=== PATIENT | female | born 1960 | race Caucasian/White ===

== ENCOUNTER 2019-08-13 17:59 | Emergency (ER) | payer MEDICARE ==
[2019-08-13 18:51] VITALS: BP 157/90
[2019-08-13] MEDS ORDERED: Albuterol 2.5 MG/3 ML NEB.SOL* (0.083%) INH ONE (19:01)
[2019-08-13] MEDS ORDERED: predniSONE TAB* 20 MG PO ONE (19:27)
[2019-08-13] MEDS ORDERED: Azithromycin TAB* 250 MG PO ONE (19:28)
--- NOTE | 2019-08-13 19:31 | UC ---
Respiratory Complaint HPI - HPI Summary HPI Summary: 58-year-old woman comes in with a chief complaint of shortness of breath chest congestion. Patient has history of COPD and she has chronic shortness of breath. In the last week or more she's developed green sputum and shortness of breath is worse. When he starts coughing she gets chest pain. To the center of her chest and it occurs with the coughing. After she was worried about heart attack and she said she was not. She feels the pain is associated with the chest congestion infection. Activity makes his shortness breath worse. No new edema. - History of Current Complaint Chief Complaint: UCRespiratory Stated Complaint: CHEST CONGESTION Time Seen by Provider: 08/13/19 18:38 Pain Intensity: 8 - Allergies/Home Medications Allergies/Adverse Reactions: Allergies Allergy/AdvReac Type Severity Reaction Status Date / Time albuterol [From ProAir HFA] Allergy GI Upset Verified 08/13/19 18:34 bupropion [From Wellbutrin] Allergy Vomiting Verified 08/13/19 18:34 ciprofloxacin Allergy Nausea And Verified 08/13/19 18:34 Vomiting doxycycline Allergy Nausea And Verified 08/13/19 18:34 Vomiting paroxetine [From Paxil] Allergy Vomiting Verified 08/13/19 18:34 Penicillins Allergy Nausea And Verified 08/13/19 18:34 Vomiting Home Medications: Home Medications Albuterol 2.5MG/3ML (0.083%)* [Ventolin 2.5 MG/3 ML NEB.YOLIE*] 1 unit INH TID PRN 08/13/19 [History Confirmed 08/13/19] Albuterol HFA INHALER* [Ventolin HFA Inhaler*] 2 puff INH Q4HR PRN 08/13/19 [ History Confirmed 08/13/19] Furosemide [Lasix] 1 tab PO DAILY 08/13/19 [History Confirmed 08/13/19] Magnesium Oxide [Magnesium] 1 tab PO DAILY 08/13/19 [History Confirmed 08/13/19] Pseudoeph/Dm/Guaifen/Acetamin [Sm Cough-Cold M-S Liq Capsule] 1 tab PO DAILY 11/19 [History Confirmed 08/13/19] Vitamin B Complex [Super B-50 Complex] 1 tab PO DAILY 08/13/19 [History Confirmed 09/12/19] PMH/Surg Hx/FS Hx/Imm Hx Previously Healthy: Yes Endocrine History: Hypothyroidism, Dyslipidemia Respiratory History: COPD GI/ History: Gastroesophageal Reflux - Surgical History Surgical History: Yes Surgery Procedure, Year, and Place: Uterine Ablation Jul 2009. tubal ligation x2 - Family History Known Family History: Positive: Hypertension, Renal Disease, Respiratory Disease - Social History Alcohol Use: None Substance Use Type: None Smoking Status (MU): Former Smoker Type: eCigarettes Amount Used/How Often: trying to quit Review of Systems All Other Systems Reviewed And Are Negative: Yes Constitutional: Positive: Other - SEE HPI Skin: Positive: Negative Eyes: Positive: Negative ENT: Positive: Sinus Congestion Respiratory: Positive: Shortness Of Breath, Cough, Other - SEE HPI Cardiovascular: Positive: Chest Pain, Other - SEE HPI Gastrointestinal: Positive: Negative Motor: Positive: Negative Neurovascular: Positive: Negative Musculoskeletal: Positive: Edema - CHRONIC LLE EDEMA S/P ANKLE FXR Neurological: Positive: Negative Psychological: Positive: Negative Is Patient Immunocompromised?: No Physical Exam Triage Information Reviewed: Yes Appearance: No Pain Distress, Well-Nourished, Ill-Appearing - MILDLY SOB Vital Signs: Initial Vital Signs Temp 98.7 F 08/13/19 18:24 Pulse 95 08/13/19 18:24 Resp 24 08/13/19 18:24 BP 157/90 08/13/19 18:24 Pulse Ox 96 08/13/19 18:24 Vital Signs Reviewed: Yes Eye Exam: Normal Eyes: Positive: Conjunctiva Clear ENT: Positive: Pharynx normal, Nasal congestion Neck: Positive: Supple Respiratory: Positive: Wheezing, Other: - POOR AIR MOVEMENT Cardiovascular: Positive: RRR Musculoskeletal: Positive: Strength Intact, ROM Intact, Edema @ - LLE with the patient reports is chronic. No calf tenderness. Neurological: Positive: Alert Psychological: Positive: Age Appropriate Behavior Skin Exam: Normal Respiratory Course/Dx - Course Course Of Treatment: With the report of green sputum and the COPD exacerbation we'll treat with antibiotics and steroids. In clinic patient received albuterol nebulizer which she stated did help with her breathing. We discussed getting an x-ray patient prefers no x-ray at this time. Starting her on prednisone and a Zithromax. Follow-up primary care doctor go to the emergency department if no improvement or worse. Patient reports that her chest pain is associated with chest congestion and she's not worried about her heart. I let her know if she had any chest pain she should go the emergency department. - Differential Dx/Diagnosis Provider Diagnosis: COPD (chronic obstructive pulmonary disease) with acute bronchitis Discharge ED - Sign-Out/Discharge Documenting (check all that apply): Patient Departure All imaging exams completed and their final reports reviewed: No Studies - Discharge Plan Condition: Stable Disposition: HOME Prescriptions: Azithromycin 250 mg PO DAILY #4 tablet predniSONE TAB* [Deltasone 20 MG TAB*] 40 mg PO DAILY #8 tab Patient Education Materials: Acute Bronchitis (ED), COPD (Chronic Obstructive Pulmonary Disease) (ED) Referrals: Tanner Sawyer MD [Primary Care Provider] - Additional Instructions: FOLLOW UP WITH YOUR DOCTOR. GO TO THE EMERGENCY DEPARTMENT IF YOUR CONDITION DOES NOT IMPROVE OR WORSENS; SHORTNESS OF BREATH, CHEST PAIN, FEVER, YOU FEEL ILL OR ANY QUESTIONS OR CONCERNS. - Billing Disposition and Condition Condition: STABLE Disposition: Home
[2019-08-14 12:09] LABS: Hepatitis C Antibody Negative (Negative)
[2019-08-14 12:14] LABS: HIV 4th Generation Nonreactive (Nonreactive)
--- NOTE | 2019-08-15 07:18 | UC ---
- Progress Note Progress Note: Please advised that HIV screen is non-reactive. Course/Dx - Diagnoses Provider Diagnoses: COPD (chronic obstructive pulmonary disease) with acute bronchitis Discharge ED - Sign-Out/Discharge Documenting (check all that apply): Patient Departure All imaging exams completed and their final reports reviewed: No Studies - Discharge Plan Condition: Stable Disposition: HOME Prescriptions: Azithromycin 250 mg PO DAILY #4 tablet predniSONE TAB* [Deltasone 20 MG TAB*] 40 mg PO DAILY #8 tab Patient Education Materials: Acute Bronchitis (ED), COPD (Chronic Obstructive Pulmonary Disease) (ED) Referrals: Tanner Sawyer MD [Primary Care Provider] - Additional Instructions: FOLLOW UP WITH YOUR DOCTOR. GO TO THE EMERGENCY DEPARTMENT IF YOUR CONDITION DOES NOT IMPROVE OR WORSENS; SHORTNESS OF BREATH, CHEST PAIN, FEVER, YOU FEEL ILL OR ANY QUESTIONS OR CONCERNS. - Billing Disposition and Condition Condition: STABLE Disposition: Home
== END 2019-08-13 19:43 | disposition home or self-care (01) ==
LOC: UCEAST 17:59
DX: J44.9 Chronic obstructive pulmonary disease, unspecified (principal); E03.9 Hypothyroidism, unspecified; E78.5 Hyperlipidemia, unspecified; K21.9 Gastro-esophageal reflux disease without esophagitis; Z87.891 Personal history of nicotine dependence; Z88.0 Allergy status to penicillin
CPT/HCPCS: 36415; 86803; 87389; 99213; A9270-GY; G0463; J7512